=== PATIENT | female | born 1995 | race Caucasian/White ===

== ENCOUNTER → 2017-03-12 | Outpatient (CLI) | payer OTHER ==
[2017-03-12 10:19] LABS: THYROID STIMULATING HORMONE 1.06 uIu/ml (0.300-4.500)
[2017-03-17 18:23] LABS: ILGF1 Z SCORE FEMALE 0.2 SD (-2.0 - +2.0); INSULIN LIKE GF BIND PROT 3 4.9 mg/L (3.4-7.8); INSULIN LIKE GROWTH FACTOR-I 231 ng/mL (83-456)
== END | disposition home or self-care (01) ==
LOC: C.LAB 08:46
PROVIDERS: ATTEND Internal Medicine Endocrinology, Diabetes & Metabolism
DX: R94.6 Abnormal results of thyroid function studies (principal); R63.4 Abnormal weight loss; S06.0X9A Concussion with loss of consciousness of unspecified duration, initial encounter; X58.XXXA Exposure to other specified factors, initial encounter

== ENCOUNTER → 2017-03-14 | Outpatient (CLI) | payer OTHER ==
[2017-03-17 16:31] LABS: TSI 140 % baseline (<140)
== END | disposition home or self-care (01) ==
LOC: C.LAB1850 15:02
PROVIDERS: ATTEND Internal Medicine Endocrinology, Diabetes & Metabolism
DX: R94.6 Abnormal results of thyroid function studies (principal)